=== PATIENT | female | born 1955 | race Caucasian/White ===

== ENCOUNTER 2019-11-07 11:51 | Emergency (ER) | payer OTHER ==
--- NOTE | 2019-11-07 12:00 | EDM.PDOC ---
ED HPI GENERAL MEDICAL PROBLEM - General Chief Complaint: Abdominal Pain Stated Complaint: ABD PAIN Time Seen by Provider: 11/07/19 12:41 Source of Information: Reports: Patient History Limitations: Reports: No Limitations - History of Present Illness INITIAL COMMENTS - FREE TEXT/NARRATIVE: pt was seen at [facility] today and she was having abdomanal pain in the left lower abdoman. she had a small bm this am. She has mild nausea. She has a history of diverticulits in the past and this does feel similar. Onset: Today Duration: Hour(s): Location: Reports: Abdomen Associated Symptoms: Reports: Loss of Appetite Abdominal Pain Score (Numeric/FACES): 7 - Related Data Allergies Allergy/AdvReac Type Severity Reaction Status Date / Time levofloxacin [From Levaquin] Allergy Severe Joint Pain Verified 11/07/19 12:14 Home Meds: Home Meds Cyanocobalamin (Vitamin B12) [Vitamin B12] 1,000 mcg PO DAILY 11/07/19 [History] L.acidoph,Paracasei, B.lactis [Probiotic] 1 each PO DAILY 11/07/19 [History] Pyridoxine HCl (Vitamin B6) [Vitamin B-6] 100 mg PO DAILY 11/07/19 [History] ED ROS GENERAL - Review of Systems Review Of Systems: See Below Constitutional: Reports: Weakness, Diaphoresis HEENT: Reports: No Symptoms Respiratory: Reports: No Symptoms Cardiovascular: Reports: No Symptoms Endocrine: Reports: No Symptoms GI/Abdominal: Reports: Abdominal Pain, Decreased Appetite, Nausea, Other (pt has pain in the left lower abdoman. ) : Reports: No Symptoms Musculoskeletal: Reports: No Symptoms Skin: Reports: No Symptoms Neurological: Reports: No Symptoms ED EXAM, GI/ABD - Physical Exam Exam: See Below Text/Narrative:: pt arrived with left lower abdomanal pain which started last nite. She was mildly nauseated. Exam Limited By: No Limitations General Appearance: Alert, Anxious, Moderate Distress Ears: Normal TMs Nose: Normal Inspection Throat/Mouth: Normal Inspection Head: Atraumatic Neck: Normal Inspection Respiratory/Chest: No Respiratory Distress Cardiovascular: Regular Rate, Rhythm GI/Abdominal Exam: Tender, Other (pt has left lower abdomanal tenderness and rt suprapubic tenderness. ) (Female) Exam: Deferred Rectal (Female) Exam: Deferred Back Exam: Normal Inspection Extremities: Normal Inspection Course - Vital Signs Last Recorded V/S: Last Vital Signs Temp 36.7 C 11/07/19 12:27 Pulse 90 11/07/19 15:35 Resp 20 11/07/19 12:27 BP 116/56 L 11/07/19 15:35 Pulse Ox 93 L 11/07/19 15:35 - Orders/Labs/Meds Labs: Laboratory Tests 11/07/19 11/07/19 Range/Units 12:06 12:06 Sodium 137 L (140-148) mmol/L Potassium 3.6 (3.6-5.2) mmol/L Chloride 100 (100-108) mmol/L Carbon Dioxide 25 (21-32) mmol/L Anion Gap 15.6 H (5.0-14.0) mmol/L BUN 11 (7-18) mg/dL Creatinine 0.8 (0.6-1.0) mg/dL Est Cr Clr Drug Dosing 56.93 mL/min Estimated GFR (MDRD) > 60 (>60) Glucose 107 H (74-106) mg/dL Calcium 8.6 (8.5-10.1) mg/dL Total Bilirubin 0.7 (0.2-1.0) mg/dL AST 14 L (15-37) U/L ALT 18 (12-78) U/L Alkaline Phosphatase 61 (46-116) U/L C-Reactive Protein 12.37 H (0.0-0.3) mg/dL Total Protein 7.2 (6.4-8.2) g/dL Albumin 3.7 (3.4-5.0) g/dL Globulin 3.5 (2.3-3.5) g/dL Albumin/Globulin Ratio 1.1 L (1.2-2.2) Meds: Medications Discontinued Medications Generic Name Dose Route Start Last Admin Trade Name Freq PRN Reason Stop Dose Admin Hydromorphone HCl 0.5 mg 11/07/19 12:40 11/07/19 13:29 Dilaudid IVPUSH 11/07/19 12:41 0.5 mg ONETIME ONE Administration Sodium Chloride 1,000 mls @ 999 mls/hr 11/07/19 12:45 11/07/19 13:25 Normal Saline IV 999 mls/hr ASDIRECTED CHRIS Administration Sodium Chloride 75 mls @ 3.5 mls/sec 11/07/19 13:45 11/07/19 14:00 Normal Saline IV 11/07/19 13:46 3.5 mls/sec ASDIRECTED CHRIS Administration Metronidazole 500 mg/ Premix 100 mls @ 100 mls/hr 11/07/19 14:23 11/07/19 15:29 IV 11/07/19 15:22 100 mls/hr ONETIME ONE Administration Ampicillin Sodium 2 gm/ Sodium 100 mls @ 200 mls/hr 11/07/19 15:30 11/07/19 15:38 Chloride IV 11/07/19 15:59 200 mls/hr ONETIME ONE Administration Iopamidol 114 ml 11/07/19 13:45 11/07/19 14:02 Isovue-300 (61%) IV 11/07/19 13:46 114 ml . DIRECTED CHRIS Administration Ondansetron HCl 4 mg 11/07/19 12:40 11/07/19 13:27 Zofran IVPUSH 11/07/19 12:41 4 mg ONETIME ONE Administration Sodium Chloride 10 ml 11/07/19 13:45 11/07/19 14:00 Saline Flush FLUSH 11/07/19 13:46 10 ml ONETIME ONE Administration - Re-Assessments/Exams Free Text/Narrative Re-Assessment/Exam: 11/07/19 14:26 pt had a sig elevated crp. She had a cat scan of the abdoman which revealed a sigmoid diverticulits. Pt is allergic to levofloxin. She was given flagyl 500mg iv and ampicillin 2 gm iv. Departure - Departure Time of Disposition: 15:40 Disposition: Home, Self-Care 01 Condition: Fair Clinical Impression: Sigmoid diverticulitis - Discharge Information Instructions: Diverticulitis, [id number] Referrals: PCP,None [Primary Care Provider] - Forms: ED Department Discharge Care Plan Goals: clear liquid diet for the next 24-36 hours and then soft food. flagyl 500mg tid, augmentin 875 bid, recheck with own physian in 4-5 days, percocet 5/325 q6h prn for severe pain.
[2019-11-07] MEDS ORDERED: HYDROmorphone 0.5 MG/0.5 ML Syringe IVPUSH ONE (12:40)
[2019-11-07] MEDS ORDERED: Ondansetron 4 MG/2 ML SDV IVPUSH ONE (12:40)
[2019-11-07] MEDS ORDERED: Sodium Chloride 0.9% 1,000 ML IV SCH (12:45)
[2019-11-07] MEDS ORDERED: Iopamidol 612 MG/ML 150 ML Bottle IV SCH (13:45)
[2019-11-07] MEDS ORDERED: Sodium Chloride 0.9% 75 ML IV SCH (13:45)
[2019-11-07] MEDS ORDERED: Sodium Chloride 0.9% 10 ML Syringe FLUSH ONE (13:45)
--- NOTE | 2019-11-07 14:15 | CT ---
Abdomen Pelvis w Cont CLINICAL HISTORY: Abdominal pain COMPARISON: None. TECHNIQUE: Transverse scans were obtained from the base of the lungs to the pubic symphysis following oral contrast and IV infusion of contrast.Auto dosage reduction and iterative reconstructiontechniques employed. FINDINGS: There is sigmoid the diverticulosis. There is also thickening of the sigmoid and some moderate stranding in the pericolic fat. No abscess is identified. The lung bases show a densely calcified nodule in the right lower lobe. The liver is free of mass or biliary dilatation. The gallbladder has normal appearance. The spleen contains multiple granulomata. There is a hiatal hernia. The pancreas shows no mass or inflammatory change. The adrenal glands appear normal bilaterally . The kidneys show no mass, stones or hydronephrosis. The ureters have normal course and caliber. The aorta has a normal contour. There is no suspicious retroperitoneal adenopathy. There are scattered surgical clips throughout the retroperitoneum. Small chest gas pattern is nonacute the. Bladder has normal contour. IMPRESSION: Sigmoid diverticulitis Sandie hernia Previous retroperitoneal surgery
[2019-11-07] MEDS ORDERED: metroNIDAZOLE/Normal Saline 500 MG in Premix Bag 1 BAG IV ONE (14:23)
[2019-11-07] MEDS ORDERED: Ampicillin 2 GM in Sodium Chloride 0.9% 100 ML IV ONE ×2 (14:25→15:30)
== END 2019-11-07 16:44 | disposition home or self-care (01) ==
LOC: JP.ED 11:51
DX: K57.32 Diverticulitis of large intestine without perforation or abscess without bleeding (principal); Z88.1 Allergy status to other antibiotic agents; Z79.899 Other long term (current) drug therapy
CPT/HCPCS: 36415; 74177; 80053; 86140; 96365; 96368; 96375; 99284; J0290; J1170; J2405; J3490; J7030; J7050; Q9967